=== PATIENT | female | born 1960 | race African-American/Black ===

== ENCOUNTER 2016-10-13 13:35 | Emergency (ER) | payer OTHER ==
[~2016-10-13] VITALS: Ht 160 cm; Wt 63.5 kg
[~2016-10-13 13:35] MED LIST: AUGMENTIN 875-1 EAC1 ORAL; IBUPROFEN600 MG ORAL; NORCO 5-325 TA1 EACH PO
[2016-10-13] MEDS ORDERED: ECOTRIN325 MG ORAL (13:51)
[2016-10-13] MEDS ORDERED: FISH OIL300 M1 PO (13:51)
[2016-10-13] MEDS ORDERED: MAGNESIUM400 M2 PO (13:51)
[2016-10-13] MEDS ORDERED: LEVOTHYROXINE50 MCG ORAL (13:51)
[2016-10-13] MEDS ORDERED: VITAMIN E PO (13:51)
[2016-10-13] MEDS ORDERED: ATORVASTATIN CA20 MG ORAL (13:51)
[2016-10-13] MEDS ORDERED: TAZTIA XT240 MG ORAL (13:51)
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
[2016-10-13] MEDS ORDERED: IBUPROFEN600 MG ORAL (14:58)
[2016-10-13] MEDS ORDERED: CYCLOBENZAPRINE10 MG ORAL (14:58)
[2016-10-13 15:14] VITALS: BP 142/89
[2016-10-13 15:15] VITALS: BP 142/89
== END 2016-10-13 15:17 | disposition home or self-care (01) ==
LOC: EMR 14:50
DX: M62.838 Other muscle spasm (principal); I25.2 Old myocardial infarction; V43.52XA Car driver injured in collision with other type car in traffic accident, initial encounter; Y92.410 Unspecified street and highway as the place of occurrence of the external cause; Y99.8 Other external cause status
CPT/HCPCS: 99284

== ENCOUNTER 2017-04-26 16:56 | Emergency (ER) | payer OTHER ==
[~2017-04-26] VITALS: Ht 160 cm; Wt 63.5 kg
[~2017-04-26 16:56] MED LIST changes: +ATORVASTATIN CA20 MG ORAL; +CYCLOBENZAPRINE10 MG ORAL; +ECOTRIN325 MG ORAL; +FISH OIL300 M1 PO; +LEVOTHYROXINE50 MCG ORAL; +MAGNESIUM400 M2 PO; +TAZTIA XT240 MG ORAL; +VITAMIN E PO
--- NOTE | 2017-04-26 17:21 | Emergency Room Report ---
History of Present Illness General Chief Complaint: Chest Pain Source: Patient Present Illness HPI Patient presents with complaints of heaviness left upper chest area she reports that she was [place] yesterday when she began feeling the discomfort She reports that it eased up throughout the night however again today throughout the day she felt heaviness off-and-on 5/10 pain Denies any shortness of breath or pleurisy denies any vomiting or diarrhea Denies any recent travel Patient reports having previous AR and previous bypass surgery After further history she also reports that she has been taking Adderall for the past 2-3 weeks she felt some discomfort with that medicine and over the past 7 days had decreased the medicine to half the dose Allergies: Coded Allergies: No Known Allergies (Unverified , 10/13/16) Patient History Past Medical History: see triage record Pertinent Family History: none Reviewed Nursing Documentation: PMH: Agreed, PSxH: Agreed Nursing Documentation-PMH Hx Cardiac Problems: Yes - [place] 1996 Hx Pacemaker: No - HYPOTHYROIDSM Review of Systems All Other Systems: negative except mentioned in HPI Physical Exam Vital Signs Date Time Temp Pulse Resp B/P (MAP) Pulse Ox O2 Delivery O2 Flow Rate FiO2 04/26/17 17:01 98.1 51 20 170/80 99 Room Air Sp02 EP Interpretation: reviewed, normal General Appearance: well appearing, no apparent distress Head: normocephalic, atraumatic Eyes: bilateral eye PERRL, bilateral eye EOMI ENT: hearing grossly normal, normal pharynx, TMs + canals normal, uvula midline Neck: full range of motion, supple, no meningismus, no bony tend Respiratory: lungs clear, normal breath sounds, no rhonchi, no respiratory distress, no retraction, no accessory muscle use Cardiovascular #1: normal peripheral pulses, regular rate, rhythm, no edema, no gallop, no JVD, no murmur Gastrointestinal: normal bowel sounds, non tender, soft, no mass, no organomegaly, non-distended, no guarding, no hernia, no pulsatile mass, no rebound Genitourinary: no CVA tenderness Musculoskeletal: normal inspection Neurologic: oriented x3, responsive, shop 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, motor strength/ tone normal, sensory intact Psychiatric: mood/affect normal Skin: normal color, no rash, warm/dry, palpation normal Lymphatic: normal inspection, no adenopathy Medical Decision Making Diagnostic Impression: Primary Impression: ACS (acute coronary syndrome) ER Course Patient is a fairly complex patient with multiple differential to consideration including but not limited to cardiac cardiopulmonary and vascular emergencies Given the patient's blood work and EKG No signs of any obvious acute ST elevation Patient however does have cardiac history Given the description on presentation patient required admission for further care Patient has already taken aspirin did not have any obvious acute chest pain which required nitroglycerin at this time and this was held Secondary to insurance purposes patient was requested to transfer for continued care Labs Test 04/26/17 17:20 White Blood Count 4.2 K/UL (4.8-10.8) Red Blood Count 3.91 M/UL (4.20-5.40) Hemoglobin 13.8 G/DL (12.0-16.0) Hematocrit 38.3 % (37.0-47.0) Mean Corpuscular Volume 98 FL (80-99) Mean Corpuscular Hemoglobin 35.3 PG (27.0-31.0) Mean Corpuscular Hemoglobin Concent 36.0 G/DL (32.0-36.0) Red Cell Distribution Width 11.0 % (11.6-14.8) Platelet Count 296 K/UL (150-450) Mean Platelet Volume 6.1 FL (6.5-10.1) Neutrophils (%) (Auto) 46.5 % (45.0-75.0) Lymphocytes (%) (Auto) 39.0 % (20.0-45.0) Monocytes (%) (Auto) 8.1 % (1.0-10.0) Eosinophils (%) (Auto) 3.2 % (0.0-3.0) Basophils (%) (Auto) 3.3 % (0.0-2.0) Sodium Level 144 mEQ/L (135-145) Potassium Level 4.2 mEQ/L (3.4-4.9) Chloride Level 107 mEQ/L (98-107) Carbon Dioxide Level 24 mEQ/L (20-30) Anion Gap 13 (5-15) Blood Urea Nitrogen 16 mg/dL (7-23) Creatinine 0.7 mg/dL (0.5-0.9) Estimat Glomerular Filtration Rate > 60 mL/min (>60) Glucose Level 102 mg/dL (74-106) Calcium Level 9.2 mg/dL (8.6-10.2) Total Bilirubin < 0.2 mg/dL (0.0-1.2) Aspartate Amino Transf (AST/SGOT) 18 U/L (5-40) Alanine Aminotransferase (ALT/SGPT) 13 U/L (3-33) Alkaline Phosphatase 71 U/L (35-104) Total Creatine Kinase 123 U/L (26-140) Creatine Kinase MB 1.6 ng/mL (< 3.8) Creatine Kinase MB Relative Index 1.3 Troponin I < 0.30 ng/mL (<=0.30) Pro-B-Type Natriuretic Peptide 80 pg/mL (0-125) Total Protein 7.1 g/dL (6.6-8.7) Albumin 4.2 g/dL (3.5-5.2) Globulin 2.9 g/dL Albumin/Globulin Ratio 1.4 (1.0-2.7) EKG Diagnostic Results Rate: bradycardiac Rhythm: NSR ST Segments: other - Nonspecific ST and T-wave changes Rhythm Strip Diag. Results EP Interpretation: yes Rate: 60 Rhythm: NSR, no PVC's, no ectopy Chest X-Ray Diagnostic Results Chest X-Ray Diagnostic Results : Chest X-Ray Ordered: Yes # of Views/Limited/Complete: 1 View Indication: Chest Pain EP Interpretation: Yes Interpretation: no consolidation, no effusion, no pneumothorax Impression: No acute disease Electronically Signed by: Will Barnes DO Last Vital Signs Date Time Temp Pulse Resp B/P (MAP) Pulse Ox O2 Delivery O2 Flow Rate FiO2 04/26/17 17:01 98.1 51 20 170/80 99 Room Air Status: improved Disposition: ER T-[facility] Condition: Improved WILL BARNES D.O. Apr 26, 2017 17:21
[2017-04-26 17:30] VITALS: BP 143/74
[2017-04-26] MEDS ORDERED: TIAZAC240 MG ORAL (17:38)
[2017-04-26 17:46] LABS: BASOPHILS % (AUTO) 3.3 % (0.0-2.0); EOSINOPHILS % (AUTO) 3.2 % (0.0-3.0); MEAN CORPUSCULAR HEMOGLOBIN 35.3 PG (27.0-31.0); MEAN CORPUSCULAR VOLUME 98 FL (80-99); MEAN PLATELET VOLUME 6.1 FL (6.5-10.1); MONOCYTES % (AUTO) 8.1 % (1.0-10.0); NEUTROPHILS % (AUTO) 46.5 % (45.0-75.0); PLATELET COUNT 296 K/UL (150-450); RED BLOOD COUNT 3.91 M/UL (4.20-5.40); WHITE BLOOD COUNT 4.2 K/UL (4.8-10.8)
[2017-04-26 17:55] LABS: TROPONIN I < 0.30 ng/mL (<=0.30)
[2017-04-26 17:56] LABS: ALANINE AMINOTRANSFERASE 13 U/L (3-33); ALBUMIN/GLOBULIN RATIO 1.4 (1.0-2.7); ANION GAP 13 (5-15); ASPARTATE AMINO TRANSFERASE 18 U/L (5-40); CALCIUM 9.2 mg/dL (8.6-10.2); CARBON DIOXIDE 24 mEQ/L (20-30); CHLORIDE 107 mEQ/L (98-107); CREATININE 0.7 mg/dL (0.5-0.9); GLOMERULAR FILTRATION RATE > 60 mL/min (>60); HEMOLYSIS 4; POTASSIUM 4.2 mEQ/L (3.4-4.9); SODIUM 144 mEQ/L (135-145); TOTAL PROTEIN 7.1 g/dL (6.6-8.7)
[2017-04-26 18:07] LABS: CKMB 1.6 ng/mL (< 3.8)
[2017-04-26 19:28] VITALS: BP 155/74
[2017-04-26 22:30] VITALS: BP 155/74
--- NOTE | 2017-04-27 11:01 | Diagnostic Imaging Report ---
Indication: Chest pain Technique: One view of the chest Comparison: 10/20/2006 Findings: Lungs and pleural spaces are clear. Heart size is upper limit normal . No significant change Impression: No acute process
== END 2017-04-26 23:15 | disposition short-term general hospital (02) ==
LOC: EMR 17:30
DX: I24.9 Acute ischemic heart disease, unspecified (principal); E03.9 Hypothyroidism, unspecified; I25.2 Old myocardial infarction
CPT/HCPCS: 36415; 71010; 80053; 82550; 82553; 83880; 84484; 85025; 93005; 99284

== ENCOUNTER 2018-07-13 09:59 | Emergency (ER) | payer OTHER ==
[~2018-07-13] VITALS: Ht 162.6 cm; Wt 60.8 kg
[~2018-07-13 09:59] MED LIST changes: +TIAZAC240 MG ORAL
[2018-07-13] MEDS ORDERED: ASPIRIN81 MG ORAL (10:08)
[2018-07-13] MEDS ORDERED: GENTAK5 ML BOTH EYES (10:47)
[2018-07-13] MEDS ORDERED: PREDNISONE20 MG ORAL (10:47)
[2018-07-13 11:05] VITALS: BP 128/61
[2018-07-13 11:06] VITALS: BP 128/61
--- NOTE | 2018-07-13 12:34 | Emergency Room Report ---
History of Present Illness General Chief Complaint: Eye Problems Source: Patient Present Illness HPI Patient presents with bilateral eye redness and irritation Clear discharge Reports that 2 weeks ago she was seen by her configuration specialist placed on antibiotic drops her symptoms appeared to improve after about 7 days however now again symptoms have returned She now feels increased discomfort to the bilateral eyes as well Denies any change in vision However she feels that the light does bother her eyes This started with her left eye and now her right eye is involved Denies any headache denies any neck pain denies any other rash Denies any contact lens use Denies any chemical contact Allergies: Coded Allergies: No Known Allergies (Unverified , 10/13/16) Patient History Past Medical History: see triage record Pertinent Family History: none Reviewed Nursing Documentation: PMH: Agreed; PSxH: Agreed Nursing Documentation-PMH Past Medical History: No History, Except For Hx Cardiac Problems: Yes - CABG 1996 Hx Pacemaker: No - HYPOTHYROIDSM Hx Diabetes: No - hypothyrodism Review of Systems All Other Systems: negative except mentioned in HPI Physical Exam Vital Signs Date Time Temp Pulse Resp B/P (MAP) Pulse Ox O2 Delivery O2 Flow Rate FiO2 07/13/18 10:00 97.9 55 17 132/65 98 Sp02 EP Interpretation: reviewed, normal General Appearance: well appearing, no apparent distress Head: normocephalic, atraumatic Eyes: bilateral eye PERRL, bilateral eye EOMI, bilateral eye other - Bilateral conjunctival irritation, pupils are reactive otherwise ENT: hearing grossly normal, normal pharynx, TMs + canals normal, uvula midline Neck: full range of motion, supple, no meningismus, no bony tend Respiratory: lungs clear, normal breath sounds, no rhonchi, no respiratory distress, no retraction, no accessory muscle use Cardiovascular #1: normal peripheral pulses, regular rate, rhythm, no edema, no gallop, no JVD, no murmur Gastrointestinal: normal bowel sounds, non tender, soft, no mass, no organomegaly, non-distended, no guarding, no hernia, no pulsatile mass, no rebound Musculoskeletal: normal inspection Neurologic: oriented x3, responsive, 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 nml as tested, motor strength/ tone normal, sensory intact Psychiatric: mood/affect normal Skin: normal color, no rash, warm/dry, palpation normal Lymphatic: normal inspection, no adenopathy Medical Decision Making Diagnostic Impression: Primary Impression: conjunctivitis ER Course Multiple differentials including but not limited to glaucoma, uveitis, conjunctivitis considered Patient appeared to improve after antibiotic drops I did discuss that likely return visit with the same eye specialists would be the best follow-up patient reports that she had to pay out of pocket for the configuration specialist and that her insurance did not cover that, and therefore she will attempt follow-up with her primary physician for referral She was also provided specialty referral I do not suspect glaucoma at this time given the presentation and description The patient stable for close follow-up Last Vital Signs Date Time Temp Pulse Resp B/P (MAP) Pulse Ox O2 Delivery O2 Flow Rate FiO2 07/13/18 11:06 97.9 87 17 128/61 99 Status: unchanged Disposition: HOME, SELF-CARE Condition: Stable Scripts Prednisone* (PREDNISONE*) 20 Mg Tablet 20 MG ORAL BID, #8 TAB Prov: Will Cassidy DO 07/13/18 Gentamicin Sulfate* (GENTAK*) 5 Ml Drops 2 DROP BOTH EYES Q8HR for 7 Days, #1 DROP 0 Refills Prov: Will Cassidy DO 07/13/18 Referrals: NON PHYSICIAN (PCP) DOC MARTINEZ Dr works in the same office and will be the actual referral Patient Instructions: Bacterial Conjunctivitis, [id number], Allergic Conjunctivitis, [id number] Additional Instructions: Patient is provided with the discharge instructions notified to follow up with primary doctor in the next 2-3 days otherwise return to the er with any worsening symptoms. Please note that this report is being documented using [employer] technology. This can lead to erroneous entry secondary to incorrect interpretation by the dictating instrument. Will Cassidy DO Jul 13, 2018 12:34
== END 2018-07-13 11:06 | disposition home or self-care (01) ==
LOC: EMR 10:27
DX: H10.9 Unspecified conjunctivitis (principal); E03.9 Hypothyroidism, unspecified
CPT/HCPCS: 99283